=== PATIENT | male | born 1980 | race Caucasian/White ===

== ENCOUNTER → 2022-06-29 | Outpatient (CLI) | payer BC, OTHER, SELFPAY ==
[2022-06-29 18:40] LABS: Anion Gap 8 (5-15); BUN 9 mg/dL (7-18); BUN/Creat Ratio 11.3 RATIO (10-20); Calcium,Total 9.2 mg/dL (8.5-10.1); Chloride 104 mmol/L (98-107); Cholesterol 188 mg/dL (200); Creatinine, Serum 0.79 mg/dL (0.70-1.30); EST Glomerular Filtration Rate 114 mL/min (>60); Est Glom Filt Rate - Afr Amer 138 mL/min (>60); Glucose 82 mg/dL (74-106); High Density Lipoprotein 47 mg/dL; Potassium 3.9 mmol/L (3.5-5.1); Sodium Level 141 mmol/L (136-145); Thyroid Stim Hormone (TSH) 1.48 uIU/mL (0.358-3.74); Triglycerides 98 mg/dL; Very Low Density Lipoprotein 20 mg/dL (5-40)
== END | disposition home or self-care (01) ==
PROVIDERS: PCP Family Medicine; Visit Provider Family Medicine
DX: Z00.00 Encounter for general adult medical examination without abnormal findings (principal)
CPT/HCPCS: 36415; 80048; 80061; 84403; 84443

== ENCOUNTER → 2023-06-09 | Outpatient (CLI) | payer BC, OTHER, SELFPAY ==
[2023-06-09 18:17] LABS: Anion Gap 5 (5-15); BUN 9 mg/dL (7-18); BUN/Creat Ratio 9.6 RATIO (10-20); Chloride 104 mmol/L (98-107); Cholesterol 185 mg/dL (200); Creatinine, Serum 0.94 mg/dL (0.70-1.30); EST Glomerular Filtration Rate 94 mL/min (>60); Est Glom Filt Rate - Afr Amer 113 mL/min (>60); Glucose 68 mg/dL (74-106); High Density Lipoprotein 40 mg/dL; Potassium 3.7 mmol/L (3.5-5.1); Sodium Level 138 mmol/L (136-145); Thyroid Stim Hormone (TSH) 2.79 uIU/mL (0.358-3.74); Triglycerides 182 mg/dL; Very Low Density Lipoprotein 36 mg/dL (5-40)
== END | disposition home or self-care (01) ==
LOC: MFPLAB 15:26
PROVIDERS: PCP Family Medicine; Visit Provider Family Medicine
DX: Z00.00 Encounter for general adult medical examination without abnormal findings (principal)
CPT/HCPCS: 36415; 80048; 80050; 80061; 84403; 84443

== ENCOUNTER → 2025-07-10 | Outpatient (CLI) | payer BC, OTHER, SELFPAY ==
--- OUTSIDE RECORDS SUMMARY | 2025-07-10 09:08 | XMS RPT_ITS | CCD ---
Author Organization [facility] Care Team Providers Care Youth Care Professional Name Role Phone Elpidio Barba Attending Unavailable Earle Mckeon Primary Care Unavailable Results Test Name Value Interpretation Reference Range Facility Basic Metabolic Profile (BMP )on 06-29-2022 BUN/CRE 11.3 RATIO Normal 10-20 [facility] Comment on above: Performed By: #### L [id number], L509.3000, L500.4100, L500.2500 #### [facility] [address] [place], [address] CA,Total 9.2 mg/dL Normal 8.5-10.1 [facility] Comment on above: Performed By: #### L [id number], L509.3000, L500.4100, L500.2500 #### [facility] [address] [place], [address] Chloride [Moles/Vol] 104 mmol/L Normal 98-107 [facility] Comment on above: Performed By: #### L [id number], L509.3000, L500.4100, L500.2500 #### [facility] [address] [place], [address] CO2 [Moles/Vol] 29.0 mmol/L Normal 21.0-32.0 [facility] Comment on above: Performed By: #### L [id number], L509.3000, L500.4100, L500.2500 #### [facility] [address] [place], [address] Creatinine [Mass/Vol] 0.79 mg/dL Normal 0.70-1.30 [facility] Comment on above: Result Comment: The validity of the calculated GFR GFRAA in patients over 70 years has not been determined. Clinical correlation is essential. Performed By: #### L [id number], L509.3000, L500.4100, L500.2500 #### [facility] [address] [place], [address] EST GFR - AA 138 mL/min Normal >60 [facility] Comment on above: Result Comment: Afri can Irish GFR Calc Performed By: #### L [id number], L509.3000, L500.4100, L500.2500 #### [facility] [address] [place], [address] GAP 8 Normal 5-15 [facility] Comment on above: Performed By: #### L [id number], L509.3000, L500.4100, L500.2500 #### [facility] [address] [place], [address] GFR/1.73 sq M.predicted among non-blacks MDRD (S/P/Bld) [Vol rate/Area] 114 mL/min/{1.73_m2} Normal >60 [facility] Comment on above: Result Comment: Non- GFR Calc Performed By: #### L [id number], L509.3000, L500.4100, L500.2500 #### [facility] [address] [place], [address] Glucose [Mass/Vol] 82 mg/dL Normal 74-106 [facility] Comment on above: Performed By: #### L [id number], L509.3000, L500.4100, L500.2500 #### [facility] [address] [place], [address] Potassium [Moles/Vol] 3.9 mmol/L Normal 3.5-5.1 [facility] Comment on above: Performed By: #### L [id number], L509.3000, L500.4100, L500.2500 #### [facility] [address] [place], [address] Sodium [Moles/Vol] 141 mmol/L Normal 136-145 [facility] Comment on above: Performed By: #### L [id number], L509.3000, L500.4100, L500.2500 #### [facility] [address] [place], [address] Urea nitrogen [Mass/Vol] 9 mg/dL Normal 7-18 [facility] Comment on above: Performed By: #### L [id number], L509.3000, L500.4100, L500.2500 #### [facility] [address] [place], [address] Basophil percentageon 2021 Chloride [Moles/Vol] 104 mmol/L 98-107 [facility] Work Phone: Cholesterol [Mass/Vol] 188 mg/dL <200 [facility] Work Phone: Comment on above: <200 mg/dL Desirable 200-240 mg/dL Borderline >240 mg/dL High Risk Glucose [Mass/Vol] 82 mg/dL 74-106 [facility] Work Phone: Potassium [Moles/Vol] 3.9 mmol/L 3.5-5.1 [facility] Work Phone: Sodium [Moles/Vol] 141 mmol/L 136-145 [facility] Work Phone: Testosterone [Mass/Vol] 440.84 ng/dL [facility] Work Phone: Comment on above: CENTRAL 90% REFERENC E RANGES MALE AGE <50 197.44 - 669.58 ng/dL MALE AGE > or = 50 187.72 - 684.19 ng/dL FEMALE AGE <50 8.38 - 35.01 ng/dL FEMALE AGE > or = 50 <7.00 - 35.92 ng/dL Effective as of 03/02/21 Triglyceride [Mass/Vol] 98 mg/dL <199 [facility] Work Phone: Comment on above: The drugs N-Acetylcy steine and Metamizole may falsely depress this assay.Serum Triglycerides Reference Interval Normal <150 mg/dL Borderline high 150 - 199 mg/dL High 200 - 499 mg/dL Very High > or = 500 mg/dL Laboratory - Chemistry and C hemistry - challengeon 06-29-2022 CO2 [Moles/Vol] 29.0 mmol/L 21.0-32.0 [facility] Work Phone: Urea nitrogen/Creatinine [Mass ratio] 11.3 mg/mg - [facility] Work Phone: Lipid Profileon 06-29-2022 Cholesterol [Mass/Vol] 188 mg/dL Normal 200 [facility] Comment on above: Result Comment: <200 mg/dL Desirable 200-240 mg/dL Borderline >240 mg/dL High Risk Performed By: #### L [id number], L509.3000, L500.4100, L500.2500 #### [facility] [address] [place], [address] Cholesterol in HDL [Mass/Vol] 47 mg/dL Normal [facility] Comment on above: Result Comment: The drugs N-Acetylcysteine and Metamizole may falsely depress this assay. Reference Range HDL <40 mg/dL Low HDL Cholesterol HDL >or= 60 mg/dL High HDL Cholesterol Performed By: #### L [id number], L509.3000, L500.4100, L500.2500 #### [facility] [address] [place], [address] Cholesterol in LDL [Mass/Vol] 121 mg/dL Normal 0-130 [facility] Comment on above: Performed By: #### L [id number], L509.3000, L500.4100, L500.2500 #### [facility] [address] [place], [address] Cholesterol in VLDL [Mass/Vol] 20 mg/dL Normal 5-40 [facility] Comment on above: Performed By: #### L [id number], L509.3000, L500.4100, L500.2500 #### [facility] [address] [place], [address] Triglyceride [Mass/Vol] 98 mg/dL Normal [facility] Comment on above: Result Comment: The drugs N-Acetylcysteine and Metamizole may falsely depress this assay. Serum Triglycerides Reference Interval Normal <150 mg/dL Borderline high 150 - 199 mg/dL High 200 - 499 mg/dL Very High > or = 500 mg/dL Performed By: #### L [id number], L509.3000, L500.4100, L500.2500 #### [facility] [address] [facility] [address] [place], [place], [id number] No Panel Informationon 06-29 Estimated GFR (MDRD) Amer 138 mL/min >60 [facility] Work Phone: Comment on above: GFR Calc Estimated GFR (MDRD) Non-Af Amer 114 mL/min >60 [facility] Work Phone: Comment on above: Non- GFR Calc Thyroid Stimulating Hormone (TSH) 1.48 uIU/mL 0.358-3.74 [facility] Work Phone: Serum or plasma calcium lien urement (mass/volume)on 06-29-2022 Calcium [Mass/Vol] 9.2 mg/dL 8.5-10.1 [facility] Work Phone: Serum or plasma cholesterol in HDL measurement (mass/volume)on 06-29-2022 Cholesterol in HDL [Mass/Vol] 47 mg/dL >40 [facility] Work Phone: Comment on above: The drugs N-Acetylcy steine and Metamizole may falsely depress this assay. Reference Range HDL <40 mg/dL Low HDL Cholesterol HDL >or= 60 mg/dL High HDL Cholesterol Serum or plasma cholesterol in VLDL measurement (mass/volume)on 06-29-2022 Cholesterol in VLDL [Mass/Vol] 20 mg/dL 5-40 [facility] Work Phone: Serum or plasma creatinine m easurement (mass/volume)on 06-29-2022 Creatinine [Mass/Vol] 0.79 mg/dL 0.70-1.30 [facility] Work Phone: Comment on above: The validity of the calculated GFR & GFRAA in patients over 70 years has not been determined. Clinical correlation is essential. Serum or plasma low density lipoprotein (LDL) cholesterol measurement (mass/volume)on 06-29-2022 Cholesterol in LDL [Mass/Vol] 121 mg/dL 0-130 [facility] Work Phone: Serum or plasma urea nitroge n measurement (mass/volume)on 06-29-2022 Urea nitrogen [Mass/Vol] 9 mg/dL 7-18 [facility] Work Phone: Testosterone, Serum Totalon 06-29-2022 Testosterone [Mass/Vol] 440.84 ng/dL Normal [facility] Comment on above: Result Comment: CENT RAL 90% REFERENCE RANGES MALE AGE <50 197.44 - 669.58 ng/dL MALE AGE > or = 50 187.72 - 684.19 ng/dL FEMALE AGE <50 8.38 - 35.01 ng/dL FEMALE AGE > or = 50 <7.00 - 35.92 ng/dL Effective as of 03/02/21 Performed By: #### L [id number], L509.3000, L500.4100, L500.2500 #### [facility] [address] [place], [place], [address] Thin prep Papanicolaou smear with manual screeningon 06-29-2022 Thin prep Papanicolaou smear with manual screening 8 5-15 [facility] Work Phone: Thyroid Stim Hormone (TSH)on 06-29-2022 TSH 1.48 uIU/mL Normal 0.358-3.74 [facility] Comment on above: Performed By: #### L [id number], L509.3000, L500.4100, L500.2500 #### [facility] [address] [place], [address] CNOVon 08-20-2021 CNOV Office Visit ([facility]WSTR ) JOSE ALFREDO SMITH ([id number]) 1980 M Date Time Provider Department 08/20/21 3:15 PM [facility] During your visit today, we recorded the following information about you: Temperature Pulse Respiration Blood pressure 97.2 degrees 68/minute 16/minute 132/68 Weight 125.2 kg Varghese Jean APRN.CNP 08/20/2021 3:21 PM Signed OTITIS MEDIA GENERAL INFORMATION: Otitis media is an infection of the middle ear. The middle ear sits behind the eardrum. This infection may be caused by a virus or bacteria and often follows a cold. Children often have repeat ear infections. Otitis media is not contagious. INSTRUCTIONS: 1. An antibiotic has been prescribed. It should be taken exactly as prescribed. Do not stop the medicine even if the symptoms go away. 2. [id number] pain medication may be taken or other pain medication as prescribed by the doctor. 3. Nothing should be placed in the ear unless instructed by your doctor. 4. The patient may return to school/daycare or work when the temperature is normal (98.6 F or 37 C). 5. The patient should not swim while the ear is infected. CONTACT YOUR DOCTOR IF YOU OR YOUR CHILD: 1. Does not feel better within 36 hours. 2. Develops a temperature over 102E F (39E C). 3. Starts vomiting or has diarrhea. 4. Develops drainage from the affected ear. 5. Has any new problem that may be related to the medicine prescribed. RETURN TO THE ED IF: 1. You or your child has a severe headache or pain around the ear. 2. You or your child notice swelling around the ear. 3. You or your child has a seizure (convulsion), twitching of the facial muscles, or passes out. 4. You or your child is dizzy, has a stiff neck, or cannot walk or talk normally. 5. Your child becomes more irritable or listless (not interested in his or her surroundings, does not get soothed by you holding him or her). Varghese Jean APRN.COMPANY DRIVER 08/20/2021 3:37 PM Signed This note was created using NoteWriter. Subjective Jose Alfredo Smith is a 40 year old male. 40 year old male with no PMH presents for left ear pain. Acute onset of symptoms was 7 days ago. +left ear +throbbing +sharp and aching +popping Denies accompanying URI sx. Denies fever or chills. States that he was her this past Monday and diagnosed with sinusitis. Placed on Doxy, denies relief of symptoms. States ear pain is getting worse The history is provided by the patient. No check examiner was used. Ear Pain This is a new problem. The current episode started in the past 7 days. The problem occurs constantly. The problem has been gradually worsening. Pertinent negatives include no abdominal pain, anorexia, arthralgias, change in bowel habit, chest pain, chills, congestion, coughing, diaphoresis, fatigue, fever ( ), headaches, joint swelling, myalgias, nausea, neck pain, numbness, rash, sore throat, swollen glands, urinary symptoms, vertigo, visual change, vomiting or weakness. Nothing aggravates the symptoms. He has tried nothing for the symptoms. The treatment provided no relief. No past medical history on file. PAST SURGICAL HISTORY Procedure Laterality Date - BLADDER SURGERY HX - KNEE SURGERY HX - VASECTOMY ALLERGIES Augmentin [Amoxicillin-Pot Clavulanate] MEDICATIONS doxycycline monohydrate (MONODOX) 100 mg capsule Take 1 capsule by mouth twice daily for 10 days. cefdinir (OMNICEF) 300 mg capsule Take 1 capsule by mouth twice daily for 7 days. ondansetron orally disintegrating (ZOFRAN ODT) 8 mg disintegrating tablet Take 1 tablet by mouth every 12 hours as needed. benzonatate (TESSALON PERLE) 100 mg capsule Take 1-2 capsules tid prn, no more than 6 in 24 hours. methylPREDNISolone (MEDROL, SCARLETT,) 4 mg Dose-Pack As Instructed per package FAMILY HISTORY Problem Relation Age of Onset - Colon Cancer Paternal Grandmother Social History Tobacco Use - Smoking status: Current Every Day Smoker Packs/day: 0.50 Types: Cigarettes - Smokeless tobacco: Never Used Substance Use Topics - Alcohol use: Yes Comment: 2-3 per week - Drug use: Not on file Review of Systems Constitutional: Negative for chills, diaphoresis, fatigue and fever ( ). HENT: Positive for ear pain, sinus pressure and sinus pain. Negative for congestion and sore throat. Eyes: Negative for photophobia, pain, discharge, redness and itching. Respiratory: Negative for apnea, cough, choking and chest tightness. Cardiovascular: Negative for chest pain, palpitations and leg swelling. Gastrointestinal: Negative for abdominal pain, anorexia, change in bowel habit, diarrhea, nausea and vomiting. Musculoskeletal: Negative for arthralgias, joint swelling, myalgias and neck pain. Skin: Negative for color change, pallor and rash. Allergic/Immunologic: Negative for environmental allergies, food allergies and (more content not included)... Normal [facility] CNOVon 08-15-2021 CNOV Office Visit ([facility]WSTR ) JOSE ALFREDO SMITH ([id number]) 1980 M Date Time Provider Department 08/15/21 10:45 AM MARLENI FAUSTIN [facility] During your visit today, we recorded the following information about you: Temperature Pulse Respiration Blood pressure 97.8 degrees 79/minute 18/minute 132/82 Weight 125.3 kg Marleni Faustin APRN.COMPANY DRIVER 08/15/2021 10:53 AM Signed Subjective HPI HPI Jose Alfredoty Smith is a 40 year old male who presents today for CC of sinus pressure congestion, worse on left and left ear pain that worsened in the past 2 days. He has uri symptoms for 10 days and last 2 days, worsening symptoms. He has used OTC medications with out relief. He has a h/o sinusitis in the past. BP 132/82 Pulse 79 Temp 36.6 ?C (97.8 ?F) Resp 18 Wt 125.3 kg (276 lb 3.2 oz) SpO2 99% BMI 37.46 kg/m? Social History Tobacco Use - Smoking status: Current Every Day Smoker Packs/day: 0.50 Types: Cigarettes - Smokeless tobacco: Never Used Substance Use Topics - Alcohol use: Yes Comment: 2-3 per week - Drug use: Not on file No past medical history on file. I have confirmed and edited as necessary, the [facility] Review of Systems Constitutional: Negative for chills and fever. HENT: Positive for congestion, ear pain (left) and sinus pain. Negative for sore throat. Respiratory: Negative for cough, sputum production, shortness of breath and wheezing. Cardiovascular: Negative for chest pain. Musculoskeletal: Negative for myalgias. Neurological: Positive for headaches. Objective Physical Exam Vitals and nursing note reviewed. HENT: Head: Normocephalic and atraumatic. Right Ear: Tympanic membrane, ear canal and external ear normal. Left Ear: Tympanic membrane, ear canal and external ear normal. Nose: Mucosal edema, congestion and rhinorrhea present. Right Sinus: No maxillary sinus tenderness or frontal sinus tenderness. Left Sinus: Maxillary sinus tenderness and frontal sinus tenderness present. Mouth/Throat: Pharynx: Uvula midline. No oropharyngeal exudate or posterior oropharyngeal erythema. Tonsils: No tonsillar abscesses. Cardiovascular: Rate and Rhythm: Normal rate and regular rhythm. Heart sounds: Normal heart sounds. Pulmonary: Effort: Pulmonary effort is normal. Breath sounds: Normal breath sounds. No decreased breath sounds, wheezing, rhonchi or rales. Lymphadenopathy: Head: Right side of head: No submental, submandibular, tonsillar or preauricular adenopathy. Left side of head: No submental, submandibular, tonsillar or preauricular adenopathy. Cervical: No cervical adenopathy. Right cervical: No superficial cervical adenopathy. Left cervical: No superficial cervical adenopathy. ASSESSMENT/PLAN: 1. Acute sinusitis, recurrence not specified, unspecified location - ICD9: 461.9, ICD10: J01.90 - Will begin treatment with Doxycycline - Saline, flonase. - Supportive care with plenty of fluids, rest, and analgesia prn. - Follow up in one week if symptoms persist or worsen. Diagnosis and treatment plan were discussed and questions were answered to the patient's satisfaction. Pt acknowledged understanding of concepts and follow up plan. Specific signs and symptoms that would indicate the need for higher level of care were discussed in detail warranting prompt ER evaluation. ROZINA Ocampo APRN.CNP 08/15/2021 10:53 AM Signed -Increase fluid intake. --Rest as much as possible. - Nasal saline spray, jumana pot, flonase Take the entire course of antibiotics as prescribed. DO NOT stop taking it early, even if you are feeling better. -Monitor for signs of worsening infection: increased temperature, pain in face, ear pain or headaches or increase in nasal congestion/mucous that is not improving. -Educated patient on side effects of medication. Referring Provider: SELF [200] Allergies As of Date: 08/15/2021 Noted Allergy Reaction AUGMENTIN (AMOXICILLIN-POT CLAVUL*08/15/2021 2 - Rash Date Reviewed: 08/15/2021 Reviewed by: Hamida Patel MA - Fully Assessed Reason for Visit: Sinus Problem [99] Cmt: pressure, congestion, SHEN ears clogged x1.5 weeks Primary Visit Diagnosis:Acute sinusitis, recurrence not specified, unspecified location [J01.90] Order(s):doxycycline monohydrate (MONODOX) 100 mg capsuleTake 1 capsule by mouth twice daily for 10 days.Disp: 20 capsuleRfl: 0 Prescriptions as of 08/15/2021 - doxycycline monohydrate (MONODOX) 100 mg capsule Take 1 capsule by mouth twice daily for 10 days. - ondansetron orally disintegrating (ZOFRAN ODT) 8 mg disintegrating tablet Take 1 tablet by mouth every 12 hours as needed. - benzonatate (TESSALON PERLE) 100 mg capsule Take 1-2 capsules tid prn, no more than 6 in 24 hours. - methylPREDNISolone (MEDROL, SCARLETT,) 4 mg Dose-Pack As Instructed per package Problem List As Of Date: 08/15/2021 (None (more content not included)... Normal [facility] Encounters Encounter Date Encounter Type Care Provider Facility Start: 07-02-2022 Encounter for genera l adult medical examination without abnormal findings [facility] Start: 06-29-2022 End: 06-29-2022 Patient encounter procedure [facility], Kaley Keating Start: 06-29-2022 End: 06-29-2022 ambulatory Elpidio Jameson [facility] Work Phone: Payers Date Payer Category Payer Self-pay 2022 Unknown [id number] [id number] Unknown [id number] [id number] Unknown [id number] Social History Date Type Detail Facility Tobacco smoking stat [facility] Unknown if ever smoked [facility] Work Phone: Start: 1980 Sex Assigned At Male W [facility] Work Phone: Progress note 08-20-2021 Note Date & Type Note Facility 08-20-2021 Note HNO ID: [id number] Author: Varghese Jean APRN.COMPANY DRIVER Service: ? Author Type: Nurse Practitioner Type: Progress Notes Filed: 08/20/2021 3:37 PM Note Text: This note was created using NoteWriter. Subjective Jose Alfredo Smith is a 40 year old male. 40 year old male with no PMH presents for left ear pain. Acute onset of symptoms was 7 days ago. +left ear +throbbing +sharp and aching +popping Denies accompanying URI sx. Denies fever or chills. States that he was her this past Monday and diagnosed with sinusitis. Placed on Doxy, denies relief of symptoms. States ear pain is getting worse The history is provided by the patient. No check examiner was used. Ear Pain This is a new problem. The current episode started in the past 7 days. The problem occurs constantly. The problem has been gradually worsening. Pertinent negatives include no abdominal pain, anorexia, arthralgias, change in bowel habit, chest pain, chills, congestion, coughing, diaphoresis, fatigue, fever ( ), headaches, joint swelling, myalgias, nausea, neck pain, numbness, rash, sore throat, swollen glands, urinary symptoms, vertigo, visual change, vomiting or weakness. Nothing aggravates the symptoms. He has tried nothing for the symptoms. The treatment provided no relief. No past medical history on file. PAST SURGICAL HISTORY Procedure Laterality Date - BLADDER SURGERY HX - KNEE SURGERY HX - VASECTOMY ALLERGIES Augmentin [Amoxicillin-Pot Clavulanate] MEDICATIONS doxycycline monohydrate (MONODOX) 100 mg capsule Take 1 capsule by mouth twice daily for 10 days. cefdinir (OMNICEF) 300 mg capsule Take 1 capsule by mouth twice daily for 7 days. ondansetron orally disintegrating (ZOFRAN ODT) 8 mg disintegrating tablet Take 1 tablet by mouth every 12 hours as needed. benzonatate (TESSALON PERLE) 100 mg capsule Take 1-2 capsules tid prn, no more than 6 in 24 hours. methylPREDNISolone (MEDROL, SCARLETT,) 4 mg Dose-Pack As Instructed per package FAMILY HISTORY Problem Relation Age of Onset - Colon Cancer Paternal Grandmother Social History Tobacco Use - Smoking status: Current Every Day Smoker Packs/day: 0.50 Types: Cigarettes - Smokeless tobacco: Never Used Substance Use Topics - Alcohol use: Yes Comment: 2-3 per week - Drug use: Not on file Review of Systems Constitutional: Negative for chills, diaphoresis, fatigue and fever ( ). HENT: Positive for ear pain, sinus pressure and sinus pain. Negative for congestion and sore throat. Eyes: Negative for photophobia, pain, discharge, redness and itching. Respiratory: Negative for apnea, cough, choking and chest tightness. Cardiovascular: Negative for chest pain, palpitations and leg swelling. Gastrointestinal: Negative for abdominal pain, anorexia, change in bowel habit, diarrhea, nausea and vomiting. Musculoskeletal: Negative for arthralgias, joint swelling, myalgias and neck pain. Skin: Negative for color change, pallor and rash. Allergic/Immunologic: Negative for environmental allergies, food allergies and immunocompromised state. Neurological: Negative for dizziness, vertigo, facial asymmetry, weakness, numbness and headaches. Hematological: Negative for adenopathy. Does not bruise/bleed easily. Psychiatric/Behavioral: Negative for agitation and behavioral problems. Objective BP 132/68 Pulse 68 Temp 36.2 ?C (97.2 ?F) Resp 16 Wt 125.2 kg (276 lb) SpO2 98% BMI 37.43 kg/m? Physical Exam Vitals and nursing note reviewed. Constitutional: General: He is not in acute distress. Appearance: Normal appearance. He is not ill-appearing, toxic-appearing or diaphoretic. HENT: Head: Normocephalic and atraumatic. Right Ear: External ear normal. Left Ear: External ear normal. Ears: Comments: Left TM bulging and erythematous Right TM slightly erythema Nose: Nose normal. No congestion or rhinorrhea. Mouth/Throat: Mouth: Mucous membranes are moist. Pharynx: Oropharynx is clear. No oropharyngeal exudate or posterior oropharyngeal erythema. Eyes: General: Right eye: No discharge. Left eye: No discharge. Extraocular Movements: Extraocular movements intact. Conjunctiva/sclera: Conjunctivae normal. Pupils: Pupils are equal, round, and reactive to light. Cardiovascular: Rate and Rhythm: Normal rate and regular rhythm. Pulses: Normal pulses. Heart sounds: Normal heart sounds. No murmur heard. No friction rub. No gallop. Pulmonary: Effort: Pulmonary effort is normal. No respiratory distress. Breath sounds: Normal breath sounds. No stridor. No wheezing, rhonchi or rales. Chest: Chest wall: No tenderness. Abdominal: General: Abdomen is flat. There is no distension. Palpations: Abdomen is soft. There is no mass. Tenderness: There is no abdominal tenderness. There is no guarding or rebound. Hernia: No hernia is present. Musculoskeletal: General: No swelling, tenderness, deformity or signs (more content not included)... [facility] Progress note 08-15-2021 Note Date & Type Note Facility 08-15-2021 Note HNO ID: [id number] Author: Marleni Faustin APRN.[employer] Service: ? Author Type: Nurse Practitioner Type: Progress Notes Filed: 08/15/2021 10:53 AM Note Text: Subjective HPI HPI Jose Alfredo Smith is a 40 year old male who presents today for CC of sinus pressure congestion, worse on left and left ear pain that worsened in the past 2 days. He has uri symptoms for 10 days and last 2 days, worsening symptoms. He has used OTC medications with out relief. He has a h/o sinusitis in the past. BP 132/82 Pulse 79 Temp 36.6 ?C (97.8 ?F) Resp 18 Wt 125.3 kg (276 lb 3.2 oz) SpO2 99% BMI 37.46 kg/m? Social History Tobacco Use - Smoking status: Current Every Day Smoker Packs/day: 0.50 Types: Cigarettes - Smokeless tobacco: Never Used Substance Use Topics - Alcohol use: Yes Comment: 2-3 per week - Drug use: Not on file No past medical history on file. I have confirmed and edited as necessary, the [facility] Review of Systems Constitutional: Negative for chills and fever. HENT: Positive for congestion, ear pain (left) and sinus pain. Negative for sore throat. Respiratory: Negative for cough, sputum production, shortness of breath and wheezing. Cardiovascular: Negative for chest pain. Musculoskeletal: Negative for myalgias. Neurological: Positive for headaches. Objective Physical Exam Vitals and nursing note reviewed. HENT: Head: Normocephalic and atraumatic. Right Ear: Tympanic membrane, ear canal and external ear normal. Left Ear: Tympanic membrane, ear canal and external ear normal. Nose: Mucosal edema, congestion and rhinorrhea present. Right Sinus: No maxillary sinus tenderness or frontal sinus tenderness. Left Sinus: Maxillary sinus tenderness and frontal sinus tenderness present. Mouth/Throat: Pharynx: Uvula midline. No oropharyngeal exudate or posterior oropharyngeal erythema. Tonsils: No tonsillar abscesses. Cardiovascular: Rate and Rhythm: Normal rate and regular rhythm. Heart sounds: Normal heart sounds. Pulmonary: Effort: Pulmonary effort is normal. Breath sounds: Normal breath sounds. No decreased breath sounds, wheezing, rhonchi or rales. Lymphadenopathy: Head: Right side of head: No submental, submandibular, tonsillar or preauricular adenopathy. Left side of head: No submental, submandibular, tonsillar or preauricular adenopathy. Cervical: No cervical adenopathy. Right cervical: No superficial cervical adenopathy. Left cervical: No superficial cervical adenopathy. ASSESSMENT/PLAN: 1. Acute sinusitis, recurrence not specified, unspecified location - ICD9: 461.9, ICD10: J01.90 - Will begin treatment with Doxycycline - Saline, flonase. - Supportive care with plenty of fluids, rest, and analgesia prn. - Follow up in one week if symptoms persist or worsen. Diagnosis and treatment plan were discussed and questions were answered to the patient's satisfaction. Pt acknowledged understanding of concepts and follow up plan. Specific signs and symptoms that would indicate the need for higher level of care were discussed in detail warranting prompt ER evaluation. Marleni Faustin APRN.SD [facility] Evaluation note Note Date & Type Note Facility Evaluation note No assessment information availa [facility] Work Phone: Summary Purpose Family History No Family History Records FoundNo Family History Records Found Advance Directives No Advanced Directives Records FoundNo Advanced Directives Records Found Additional Source Comments (unrecognized sect ion and content) No Status Records FoundNo Status Records Found INFORMATION SOURCE (unrecogn ized section and content) DATE CREATED AUTHOR 09/03/2021 [facility] DATE CREATED AUTHOR AUTHOR'S LILIAIZ ATION 07/02/2022 [facility] Goals (unrecognized section and content) Goals may be documented in a n alternate section FOR RECORDS PERTAINING TO PATIENTS WHO ARE OR HAVE BEEN ENROLLED IN A CHEMICAL DEPENDENCY/SUBSTANCEABUSE PROGRAM, SOME INFORMATION MAY BE OMITTED. This clinical summary was aggregated from multiple sources. Caution should be exercised in using it in the provision of clinical care. This summary normalizes information from multiple sources, and as a consequence, information in this document may materially change the coding, format and clinical context of patient data. In addition, data may be omitted in some cases. CLINICAL DECISIONS SHOULD BE BASED ON THE PRIMARY CLINICAL RECORDS. [facility] [employer] [facility]. provides no warranty or guarantee of the accuracy or completeness of information in this document.
[2025-07-10 10:46] LABS: Anion Gap 12 (5-15); BUN 13 mg/dL (4-19); BUN/Creat Ratio 13.2 RATIO (10-20); Calcium,Total 9.5 mg/dL (7.6-11.0); Carbon Dioxide 25.4 mmol/L (21.0-32.0); Chloride 104 mmol/L (98-108); Cholesterol 190 mg/dL (<=200); Glucose 112 mg/dL (70-99); Low Density Lipoprotein Calc. 129 mg/dL; Potassium 4.2 mmol/L (3.3-5.1); Triglycerides 91 mg/dL; Very Low Density Lipoprotein 18 mg/dL (5-40); cholesterol:hdl ratio screen 4.31
== END | disposition home or self-care (01) ==
LOC: MFPLAB 08:40
PROVIDERS: PCP Family Medicine; Visit Provider Family Medicine
DX: Z00.00 Encounter for general adult medical examination without abnormal findings (principal); E66.9 Obesity, unspecified
CPT/HCPCS: 36415; 80048; 80061; 84443